=== PATIENT | female | born 1955 | race Caucasian/White ===

== ENCOUNTER 2017-05-07 00:42 | Emergency (ER) | payer BC, OTHER ==
[2017-05-07] MEDS ORDERED: dilTIAZem HCL 125 MG/25 ML - 25 ML VIAL ONE ×2 (00:55→01:15)
--- NOTE | 2017-05-07 01:02 | PDOC ---
History of Present Illness - General Stated Complaint: TACHYCARDIA Time Seen by Provider: 05/07/17 00:53 - History of Present Illness Initial Comments: 05/07/17 01:03 The patient is a 61 year old female with a history of CHF, Afib, dermatomyositis , Pulmonary fibrosis, Bronchopulmonary Aspergillosis, IDDM, HTN with a trach who presents [facility] for evaluation of tachycardia and respiratory distress. The patient normally gets her care at [facility] and was recently admitted there for several days before she was discharged to [facility] today. There she continued to have multiple desaturations on their vent unless she was 100% FiO2. They noted that the patient became tachycardic and decided to transfer her to the ED for evaluation and further management. On presentation to the ED , the patient is in afib with rvr with an O2 saturation of 85% which came up to 97% with bag valve attachment and has maintained on our vent. The patient is unable to communicate with us on presentation due to her respiratory distress and trach. Past History - Past Medical History Allergies/Adverse Reactions: Allergies Allergy/AdvReac Type Severity Reaction Status Date / Time hydroxychloroquine Allergy Verified 05/07/17 01:49 leflunomide Allergy Verified 05/07/17 01:50 rituximab Allergy Verified 05/07/17 01:50 Home Medications: Ambulatory Orders Acetaminophen [Acetaminophen ER] 650 mg PEG QID PRN 05/07/17 Acetazolamide [Diamox -] 250 mg PEG DAILY 05/07/17 Atorvastatin Calcium 1 tab PEG DAILY 05/07/17 Azathioprine 1 tab PEG BID 05/07/17 Calcium Acetate 667 mg PEG QID 05/07/17 Calcium Carbonate - 1,250 mg PEG BID 05/07/17 Diltiazem [Cardizem -] 1 tab PEG QID 05/07/17 Docusate Sodium [Stool Softener] 30 ml PEG HS 05/07/17 Ferrous Sulfate [Ferosul] 5 ml PEG DAILY 05/07/17 Humalog 05/07/17 Lansoprazole [Prevacid -] 30 mg PEG DAILY 05/07/17 Lantus (10mL VIAL) - 05/07/17 Lorazepam 1 mg PEG QID 05/07/17 Mirtazapine 15 mg PEG DAILY 05/07/17 Prednisone Oral Solution [Deltasone -] 5 mg PEG BID 10/21/17 Sennosides [Senna] 2 tab PEG DAILY 05/07/17 Review of Systems - Review of Systems Able to Perform ROS?: No (Respirtory distress) *Physical Exam - Physical Exam Comments: 05/07/17 02:31 General Appearance: Nourished. In Moderate Distress HEENT: EOMI, KHADIJAH. Trach in place Respiratory/Chest: Diffuse rhonchi and rales auscultated on exam. No Wheezing Cardiovascular: Tachycardic and irregularly irregular. No Murmur, Gallops, Rubs Gastrointestinal/Abdominal: Distended and tense. No Guarding, Rebound, Tenderness Musculoskeletal: No CVA Tenderness Extremity: Normal Capillary Refill Integumentary: Normal Color, Dry, Warm Neurologic: Unable to Assess. ED Treatment Course - LABORATORY CBC & Chemistry Diagram: 05/07/17 00:56 05/07/17 00:56 - RADIOLOGY Radiology Studies Ordered: Category Date Time Status ABDOMEN FLAT & UPRIGHT [RAD] Stat Radiology 05/07/17 00:53 Ordered CHEST X-RAY PORTABLE* [RAD] Stat Radiology 05/07/17 00:53 Ordered Medical Decision Making - Critical Care Time Total Critical Care Time (minutes): 40 Critical Care Statement: The care of this patient involved high complexity decision making to prevent further life threatening deterioration of the patient 's condition and/or to evaluate & treat vital organ system(s) failure or risk of failure. - Medical Decision Making 05/07/17 02:36 The patient is a 61 year old female with a history of CHF, Afib, dermatomyositis , Pulmonary fibrosis, Bronchopulmonary Aspergillosis, IDDM, HTN with a trach who presents [facility] for evaluation of tachycardia and respiratory distress. The patient has never been to our hospital in the past and has had all her care at [facility]. EMS informed us that they were planning on taking the patient to [facility], however their vent was failing en route and they decided to present to our ED. The patient was in respiratory distress likely due to her pulmonary fibrosis and bronchopulmonary aspergillosis as well as exacerbated due to her afib with rvr and worsening chf. She has been stabilized here in our ED. Given that the patient has an extremely complicated medical history with no records here in our hospital as well as her recent discharge from earlier today, we will contact regarding transferring the patient to their facility. 05/07/17 02:40 We discussed with transfer center and ED physician who informed us they were under the impression that the patient was being transferred to them from the [facility]. They agree that given the patient's extensive medical history and recent care at [facility], it is in the patient's best interest to be transferred to their facility. We discussed the plan with the patient's family who voiced understanding and are agreeable with the plan. *DC/Admit/Observation/Transfer Diagnosis at time of Disposition: [facility] - Discharge Dispostion Disposition: TRANSFER ACUTE CARE/OTHER HOSP Condition at time of disposition: Guarded - Referrals Referrals: Jhony Velázquez [Primary Care Provider] - - Transfer to Acute Care Facility Receiving Facility: [facility], [place]
[2017-05-07] MEDS ORDERED: SODIUM CHLORIDE 0.9% 500 ML INFUS.BAG IV ONE (01:04)
--- NOTE | 2017-05-07 01:04 | PDOC ---
Attending Attestation - Resident Resident Name: Eliseo Starks - HPI HPI: 05/07/17 01:03 Pt comes with anasarca, dehydration; dry mucus membranes; dark urine in the jeffrey cath we placed in the ER. Respiratory failure; tracheostomy tube on ventilator. Pt is in rapid atrial fibrillation and she is dehydrated. She is hypovolemic: systolic 94 in the ER. - Physicial Exam PE: 05/07/17 03:25 Pt has distended abdomen; PEG tube in place. Bruises on abd where she had heparin subcutaneous injection. She has a right inner thigh ulcer/infection. Pt has coarse breath sounds bilaterally and throughout. She has fluffy sputum tinged with blood coming out of her tracheostomy. Pt hasrapid afib and she is hypotensive. She is anxios and shakes her right arm and motions that she needs ativan. 05/07/17 03:31 Agree with resident exam. - Medical Decision Making 05/07/17 01:30 I called [facility] to speak to the doctors who were treating her and discharged her several hours ago. The ER at [facility] was expecting patient. Hospitalist service will call me back. Pt is complicated with aspergillosis and CHF and rapid afib and pulmonary fibrosis 05/07/17 03:27 Pt will be transferred to [facility] not because they have any specialized equipment, rather because they have been caring for her for months and they are the ones who placed her PEG tub and her trach tube and watched her deteriorate with worsening CHF and pulm fibrosis. They on their paperwork document that pt has aspergillosis. They have old labs for comparison. Pt currently has trop posiitve at 0.39; cpk is 38; we have no labs for comparison. Pts care will be vastly superior at [facility] where she has doctors and specialists who know everything about her that led to her decline over the past 2 months. 05/07/17 03:33 Dr Lion at the ER is accepting the patient.
[2017-05-07] MEDS ORDERED: dilTIAZem HCL 50 MG/10 ML - 10 ML VIAL IVPUSH ONE ×3 (01:05→03:06)
[2017-05-07 01:06] LABS: MCH 31.2 pg (25.7-33.7); MCHC 33.3 g/dl (32.0-36.0); MEAN CELL VOLUME 93.9 fl (80-96); MEAN PLT VOLUME 9.6 fl (7.5-11.1); PLATELET COUNT 273 K/MM3 (134-434); RDW 18.3 % (11.6-15.6); WHITE BLOOD COUNT 14.3 K/mm3 (4.0-10.0)
[2017-05-07 01:15] LABS: URINE APPEARANCE SLCLOUDY; URINE BILIRUBIN NEGATIVE (NEGATIVE); URINE BLOOD NEGATIVE (NEGATIVE); URINE GLUCOSE (UA) NEGATIVE (NEGATIVE); URINE KETONE NEGATIVE (NEGATIVE); URINE NITRITE NEGATIVE (NEGATIVE); URINE UROBILINOGEN NEGATIVE mg/dL (0.2-1.0)
[2017-05-07 01:19] LABS: URINE COLOR YELLOW; URINE PROTEIN 1+ (NEGATIVE)
[2017-05-07 01:21] LABS: INR 1.05 (0.82-1.09); PROTHROMBIN TIME (PATIENT) 11.9 SEC (9.98-11.88)
[2017-05-07 01:21] LABS: URINE BACTERIA RARE /hpf (NONE SEEN); URINE HYALINE CAST 54 /lpf; URINE MUCUS RARE; URINE RBC 1 /hpf (0-3); URINE WBC 1 /hpf (3-5); YEAST MANY
[2017-05-07 01:24] LABS: ACTIVATED PTT 26.3 SECONDS (26.9-34.4)
[2017-05-07 01:31] LABS: ALBUMIN 2.4 g/dl (3.4-5.0); ANION GAP 11 (8-16); BILIRUBIN,TOTAL 1.2 mg/dL (0.2-1.0); CO2 26 mmol/L (21-32); CREATININE 0.7 mg/dL (0.55-1.02); GLUCOSE,RANDOM 142 mg/dL (74-106); SGOT/AST 39 U/L (15-37); SGPT/ALT 60 U/L (12-78); TOT PROT 5.8 g/dl (6.4-8.2)
[2017-05-07 01:32] LABS: MYELOCYTE 1 % (0-2); PLATELET ESTIMATE ADEQUATE (NORMAL); TOTAL CELLS COUNTED 100
[2017-05-07 01:33] LABS: ALK PHOS 279 U/L (45-117); CPK 38 IU/L (26-192); TROPONIN I 0.39 ng/ml (0.00-0.05)
[2017-05-07 01:35] LABS: CALCIUM 6.8 mg/dL (8.5-10.1)
[2017-05-07] MEDS ORDERED: DEXTROSE 50%-WATER - 25 GM/50 ML VIAL IVPUSH ONE (01:36)
[2017-05-07] MEDS ORDERED: INSULIN REGULAR HUMAN 100 UNITS/ML *VIAL IVPUSH ONE (01:36)
[2017-05-07] MEDS ORDERED: ALBUTEROL SO4 0.083% IH SOL 2.5 MG/3 ML VIAL.NEB. NEB ONE (01:37)
[2017-05-07 01:43] VITALS: TEMP 98.6; BMI 39.0
[2017-05-07] MEDS ORDERED: DEXTROSE 50%-WATER 25 GM/50 ML DISP.SYRIN ONE (02:16)
[2017-05-07] MEDS ORDERED: INSULIN REGULAR HUMAN 100 UNITS/ML *VIAL ONE (02:17)
[2017-05-07] MEDS ORDERED: LORazepam 2 MG/ML SDV VIAL ONE (02:18)
[2017-05-07 02:19] LABS: ALLENS TEST POSITIVE; ART PUNCT SITE LEFT BRACHIAL; ARTERIAL BLOOD GAS BASE EXCESS 1.7 meq/l (-2-2); ARTERIAL BLOOD GAS HCO3 25.7 meq/L (22-26); ARTERIAL BLOOD GAS pH 7.42 (7.35-7.45); LPM/O2% 100%; MECH. VENT. YES; METHEMOGLOBIN 0.7 % (0.4-1.5); PT. ON O2? YES; TYPE OF O2 MECH VENT; VENT RATE 15; VT/PRESS 400
[2017-05-07 02:22] LABS: ARTERIAL BLD GAS O2 SATURATION 99.9 % (90-98.9)
[2017-05-07 03:02] VITALS: BP 133/59; PULSE 128
[2017-05-07 10:05] LABS: URINE LEUK ESTERASE Negative (NEGATIVE)
--- NOTE | 2017-05-07 13:03 | EKG ---
Test Reason : Blood Pressure : / mmHG Vent. Rate : 140 BPM Atrial Rate : 136 BPM P-R Int : 000 ms QRS Dur : 118 ms QT Int : 326 ms P-R-T Axes : 000 107 -56 degrees QTc Int : 497 ms ATRIAL FIBRILLATION WITH RAPID VENTRICULAR RESPONSE RIGHTWARD AXIS ATYPICAL LEFT BUNDLE BRANCH BLOCK ABNORMAL ECG WHEN COMPARED WITH ECG OF 27-DEC-2007 08:38, NOTE PRESENSE OF RAD AND LBBB Confirmed by NENA BASURTO, AUDREY ([id number]) on 05/07/2017 1:02:59 PM Referred By: Confirmed By:AUDREY BARRETT MD
== END 2017-05-07 04:02 | disposition short-term general hospital (02) ==
LOC: JER 00:42
PROC: 3E0F7GC Introduction of Other Therapeutic Substance into Respiratory Tract, Via Natural or Artificial Opening (ICD-10-PCS; principal; 2017-05-07)
PROC: 3E033NZ Introduction of Analgesics, Hypnotics, Sedatives into Peripheral Vein, Percutaneous Approach (ICD-10-PCS; 2017-05-07)
PROC: 3E033GC Introduction of Other Therapeutic Substance into Peripheral Vein, Percutaneous Approach (ICD-10-PCS; 2017-05-07)
PROC: 3E033VG Introduction of Insulin into Peripheral Vein, Percutaneous Approach (ICD-10-PCS; 2017-05-07)
DX: I48.91 Unspecified atrial fibrillation (principal); Z79.01 Long term (current) use of anticoagulants; I50.9 Heart failure, unspecified; B44.1 Other pulmonary aspergillosis; I10 Essential (primary) hypertension; E11.9 Type 2 diabetes mellitus without complications; Z79.4 Long term (current) use of insulin; M33.10 Other dermatomyositis, organ involvement unspecified; Z93.0 Tracheostomy status; Z93.1 Gastrostomy status
CPT/HCPCS: 36600; 71010-TC; 80053; 81003; 81015; 82375; 82550; 82803; 83050; 83605; 84484; 85025; 85610; 85730; 86850; 86900; 86901; 87040; 87086; 93005; 93010; 99285-25